=== PATIENT | male | born 1950 | race African-American/Black ===

== ENCOUNTER → 2024-07-19 11:04 | Outpatient (REF) | payer OTHER, SELFPAY ==
[2024-07-20 14:03] LABS: Mumps Virus IgG Positive; Rubeola (Measles) IgG Positive; Varicella Zoster IgG (VZV) Positive
[2024-07-20 19:01] LABS: Hepatitis B Surface Antibody Negative
[2024-07-20 19:34] LABS: Rubella Positive
[2024-07-21 05:15] LABS: Quantiferon Mitogen minus NIL 9.92 IU/mL; Quantiferon NIL 0.08 IU/mL; Quantiferon Plus TB1 minus NIL 0.03 IU/mL (<=0.34); Quantiferon Plus TB2 minus NIL 0.03 IU/mL (<=0.34); Quantiferon TB Gold Plus Negative (Negative)
== END ==
LOC: REG 11:04
PROVIDERS: ATTENDING PHYSICIAN Nurse Practitioner Family
DX: Z23 Encounter for immunization (principal)
CPT/HCPCS: 36415; 86480; 86706; 86735; 86762; 86765; 86787